=== PATIENT | male | born 1975 | race Two or more races ===

== ENCOUNTER 2017-02-14 18:10 | Emergency (ER) | payer OTHER ==
[~2017-02-14] VITALS: Ht 165.1 cm; Wt 99.8 kg
[2017-02-14 18:30] VITALS: BP 152/83
[2017-02-14] MEDS ORDERED: ACETAMINOPHEN 500 MG TABLET PO ONE (19:15)
[2017-02-14] MEDS ORDERED: DIPHTH,PERTUSS(ACELL),TET TOX 0.5 ML DISP.SYRIN. VAX IM ONE (19:15)
[2017-02-14] MEDS ORDERED: GELATIN SPONGE SIZE 12-7MM SPONGE. TP ONE (19:15)
--- NOTE | 2017-02-14 19:36 | PHYS DOC ---
Past Medical History Past Medical History: Anxiety, Depression, Other Additional Past Medical Histor: ENLARGED PROSTATE Past Surgical History: Other Additional Past Surgical Histo: EXPLORATORY AB SURGERY, COLONOSCOPY, TUBAL REVERSAL Alcohol Use: Occasionally Drug Use: None Adult General Chief Complaint Chief Complaint: LACERATION/AVULSION HPI HPI Patient is a 41 year old male with history of anxiety who presents with right thumb skin avulsion. Patient states he got cut by a potato slicer. Review of Systems Review of Systems Constitutional: Denies fever or chills [] Eyes: Denies change in visual acuity, redness, or eye pain [] Musculoskeletal: Denies back pain or joint pain [] Integument: right thumb skin avulsion Neurologic: Denies headache, focal weakness or sensory changes [] Endocrine: Denies polyuria or polydipsia [] Current Medications Current Medications Current Medications Medications (Trade) Dose Ordered Sig/Lynn Start Time Stop Time Status Last Admin Dose Admin Acetaminophen (Tylenol) 500 mg 1X ONCE 02/14/17 19:15 02/14/17 19:16 DC Diphtheria/ Tetanus/Acell Pertussis (Boostrix) 0.5 ml ONCE ONCE 02/14/17 19:15 02/14/17 19:16 DC Gelatin (Gelfoam Size 12-7mm) 1 each 1X ONCE 02/14/17 19:15 02/14/17 19:16 DC Allergies Allergies Allergies Coded Allergies Type Severity Reaction Last Updated Verified No Known Drug Allergies 02/14/17 No Physical Exam Physical Exam Constitutional: Well developed, well nourished, no acute distress, non-toxic appearance. [] HENT: Normocephalic, atraumatic, bilateral external ears normal, oropharynx moist, no oral exudates, nose normal. [] Skin: Right thumb tip with a tiny skin avulsion approximately 1 x 0.2 cm. There is no bone involvement. No tendon involvement. Neurovascular exam is intact to the right thumb. +2 right radial pulse. Cap refill less than 2 seconds the right thumb. Back: No tenderness, no CVA tenderness. [] Extremities: No tenderness, no cyanosis, no clubbing, ROM intact, no edema. [] Neurologic: Alert and oriented X 3, normal motor function, normal sensory function, no focal deficits noted. [] Psychologic: Affect normal, judgement normal, mood normal. [] Current Patient Data Vital Signs Vital Signs Date Time Temp Pulse Resp B/P (MAP) Pulse Ox O2 Delivery O2 Flow Rate FiO2 02/14/17 18:30 98.6 78 18 99 Room Air 98.6 EKG EKG [] Radiology/Procedures Radiology/Procedures []Right thumb x-rays three views interpreted by Dr. Hale are negative for any acute findings. Course & Med Decision Making Course & Med Decision Making Pertinent Labs and Imaging studies reviewed. (See chart for details) Patient has right thumb skin avulsion. Bleeding is well controlled. Right thumb x-rays three views interpreted by Dr. Hale are negative for any acute findings. Patient was given tetanus in the ED. Provided wound care instructions as well as return precautions. Follow-up with his own PCP in 1-2 weeks as needed. Dragon Disclaimer Dragon Disclaimer This electronic medical record was generated, in whole or in part, using a voice recognition dictation system. Departure Departure Impression: Primary Impression: Avulsion of skin of finger Disposition: HOME, SELF-CARE Condition: STABLE Referrals: UNKNOWN PCP NAME (PCP) Follow-up with your doctor in 1-2 weeks. Patient Instructions: Deep Skin Avulsion Additional Instructions: You were seen for right thumb skin avulsion. Keep the area clean and dry. Apply Neosporin to eat twice a day. Follow-up with the primary care doctor in 1-2 weeks as needed. Scripts Acetaminophen With Codeine (TYLENOL WITH CODEINE #3 TABLET) 1 Each Tablet 1 TAB PO PRN Q4HRS Y for PAIN, #30 TAB Prov: MARILUZ VÁSQUEZ APRN 02/14/17 Problem Qualifiers Primary Impression: Avulsion of skin of finger Encounter type: initial encounter Qualified Codes: S61.209A - Unspecified open wound of unspecified finger without damage to nail, initial encounter MARILUZ VÁSQUEZ FAMILY LIVING EDUCATOR Feb 14, 2017 19:36
[2017-02-14] MEDS ORDERED: ACET-704 PO (19:40)
--- NOTE | 2017-02-15 08:53 | RAD ---
Indication abdominal laceration. An AP view of the right hand was obtained as well as additional lateral and AP imaging targeted to the thumb. No bony abnormality is seen
== END 2017-02-14 19:44 | disposition home or self-care (01) ==
LOC: ER 18:10
DX: S61.101A Unspecified open wound of right thumb with damage to nail, initial encounter (principal); F41.9 Anxiety disorder, unspecified; F32.9 Major depressive disorder, single episode, unspecified; N40.0 Benign prostatic hyperplasia without lower urinary tract symptoms; W26.8XXA Contact with other sharp object(s), not elsewhere classified, initial encounter; Y93.89 Activity, other specified; Y92.89 Other specified places as the place of occurrence of the external cause; Y99.8 Other external cause status
CPT/HCPCS: 73140; 90471; 90715; 99284-25